=== PATIENT | female | born 1975 | race Hispanic/Latino ===

== ENCOUNTER 2024-07-20 11:27 | Emergency (ER) | payer SELFPAY ==
[2024-07-20 11:32] VITALS: BP 121/90
[2024-07-20 11:34] VITALS: BP 121/90
--- NOTE | 2024-07-20 11:39 | ED.GENMED ---
History of Present Illness
General
Chief Complaint: Anxiety
Time Seen by Provider: 07/20/24 11:29
History of Present Illness
History of Present Illness:
49-year-old female with history of hypertension presents to the emergency department via EMS after a reported panic attack while at work. EMS was called by her employer due to severe anxiety however at this time the patient refuses to provide any
details of this. When I asked her to give me information about what led to the event she simply shakes her head and shrugs her shoulders. She denies being in pain at this time. Denies any SI or HI. She is very withdrawn and noncooperative with
interview questions
Review of Systems
Review of Systems
Allergies reviewed?: Yes
All Other Systems: ROS reviewed and negative except as documented in HPI and ROS
Phy Exam
Physical Exam
Physical Exam:
GEN: Well appearing, NAD, WDWN
HEENT: Oral mucosa moist, no scleral icterus
Cardiac: Regular rate
Lung: No respiratory distress, no tachypnea
MSK: No gross deformity or injuries
Skin: Good color, no pallor or jaundice, no rashes
Neuro: AO x3, moves all extremities freely
Psych: Calm, cooperative
Course
Orders/Labs/Results
Orders:
Orders
07/20/24 11:40
Electrocardiogram (*1) Urgent
Reason for Study: QTc Monitoring
EKG- Treatment ONCE
07/20/24 13:27
Basic Metabolic Panel Urgent
TSH Reflex To Free T4 Urgent
07/20/24 13:27
Vital Signs
Initial and Last Documented VS:
Initial Vital Signs
Temp Pulse Resp BP Pulse Ox
97.2 F 96 16 121/90 97
07/20/24 11:32 07/20/24 11:32 07/20/24 11:32 07/20/24 11:32 07/20/24 11:32
Last Documented Vital Signs
Temp Pulse Resp BP Pulse Ox
97.2 F 96 16 114/83 99
07/20/24 11:32 07/20/24 11:32 07/20/24 11:32 07/20/24 12:00 07/20/24 12:00
MDM/Problems Addressed
MDM/Problems Addressed:
Because the patient's symptoms is not immediately clear certainly could represent an anxiety attack given the description provided by EMS. The patient carolyn stable in the emergency department with no complaints will discharge to outpatient follow-up
Comment
Comment:
EKG independently interpreted by me shows a normal sinus rhythm with a rate of [address]
*Pulse Oximetry
Patient hypoxic: no
Comment: 97% room air
*Critical Care Note
Total Time (30-74mins, 75-104mins- exclusive of procedures): Not Applicable
Update Note
Update Note:
07/20/2024 1258 PM: At this time patient is more conversant but has no recollection of the event. She does note that she felt very hot and flushed prior to the incident we will check BMP and TSH for completeness
ED Attending Note
-
Portions of this chart may have been created with voice recognition software.� Occasional wrong word or��sound alike� substitutions may have occurred due to the inherent limitations of voice recognition software.
Discharge Plan
Departure
Patient Disposition: Home (Routine Discharge)
Date of Disposition: 07/20/24
Time of Disposition: 14:38
Patient with high blood pressure during this ER visit?: No
Discharge Problem:
Panic attack
Instructions: Anxiety, Adult (DC)
Discharge Date and Time
Print Language: J[place]
[2024-07-20 12:00] VITALS: BP 114/83
[2024-07-20 13:00] VITALS: BP 130/90
[2024-07-20 13:57] LABS: Blood Urea Nitrogen 15 mg/dl (7-17); Calcium 9.9 mg/dl (8.4-10.2); Carbon Dioxide 26 mmol/L (22-30); Chloride 106 mmol/L (98-107); Glucose 95 mg/dl (70-99); Potassium 3.6 mmol/L (3.5-5.1); Sodium 140 mmol/L (135-145); eGFR > 60.00
[2024-07-20 14:00] VITALS: BP 135/87
[2024-07-20 14:27] LABS: TSH Reflex To Free T4 1.51 uIU/ml (0.47-4.68)
[2024-07-20 15:00] VITALS: BP 140/81
== END 2024-07-20 15:00 | disposition home or self-care (01) ==
LOC: EMR 11:27
PROVIDERS: Physician Assistant; EMERGENCY PHYSICIAN Emergency Medicine
DX: F41.0 Panic disorder [episodic paroxysmal anxiety] (principal); I10 Essential (primary) hypertension; F41.9 Anxiety disorder, unspecified; Z88.6 Allergy status to analgesic agent; Z88.8 Allergy status to other drugs, medicaments and biological substances
CPT/HCPCS: 99283; 80048; 84443; 93005